=== PATIENT | female | born 1980 | race Caucasian/White ===

== ENCOUNTER → 2022-07-01 11:00 | Outpatient (CLI) | payer OTHER, SELFPAY ==
--- NOTE | 2022-07-01 11:03 | DI.RAD.S_ITS ---
PROCEDURE: XR KNEE RT 3V INDICATIONS: Right knee pain after trauma TECHNIQUE: 3 views of the knee were acquired. COMPARISON: None. FINDINGS: Bones: No fractures or dislocations. No suspicious bony lesions. Soft tissues: Mild joint effusion. No suspicious soft tissue calcifications. IMPRESSION: Mild effusion. No visualized acute fracture or dislocation. However, if clinical concern and/or pain persist, short interval imaging followup in 7-10 days is recommended, as occult injury cannot be definitively excluded. Dictated by: Florina Vera M.D. on 07/01/2022 at 11:43 Approved by: Florina Vera M.D. on 07/01/2022 at 11:44
== END ==
PROVIDERS: Referring Provider Physician Assistant Medical; Visit Provider Physician Assistant Medical
DX: M25.561 Pain in right knee (principal); M25.461 Effusion, right knee
CPT/HCPCS: 73562